=== PATIENT | male | born 1960 | race Caucasian/White ===

== ENCOUNTER → 2018-05-21 | Day surgery (SDC) | payer OTHER ==
[~2018-05-21] MED LIST: BACITRACIN IRRIGATION/NS 50,000 UNITS/1,000 ML BTL IRR ONE; BUPIVACAINE 0.5% 30 ML SDV ONE; DIAZEPAM 5 MG TAB PO ONE; IOPAMIDOL (ISOVUE-300) 50 ML VIAL ONE; LIDO/EPI 1% **for epidural** 30 ML SDV ONE; LIDOCAINE 1% 300 MG/30 ML SDV ONE; MIDAZOLAM 2 MG/2 ML VIAL ONE; NS 1,000 ML IV ONE; ceFAZolin 2 GM/DEXTROSE 100 ML IV ONE; diphenhydrAMINE 25 MG CAP PO ONE; fentaNYL 100 MCG/2 ML INJ ONE
--- NOTE | 2018-05-21 08:12 | PDPROPOC ---
Sedation Plan of Care Sedation Plan of Care: vital signs stable, mental status noted, patient educated of risks, benefits, alternatives, patient can tolerate sedation ASA Classification: ASA 3 Planned drugs: fentanyl, midazolam Mallampati Score: Class 2 Mallampati Reference Image: Patient passed 3-3-2 rule?: Yes
--- NOTE | 2018-05-21 08:13 | PDHPUP ---
History & Physical Update H&P update statement: This history and physical update is based on an assessment of the patient which was completed after admission or registration (within 24 hours), but prior to the surgery/procedure. H&P update: H&P reviewed & patient examined, no change in patient's condition since H&P completed
[2018-05-21 09:40] LABS: PLATELET COUNT 225 10^3/uL (150-400)
[2018-05-21 09:57] LABS: INR 0.97 (0.83-1.16); PROTIME(PATIENT) 13.1 SEC (12.0-15.0)
--- NOTE | 2018-05-21 12:23 | EPPROC ---
Electrophysiology Procedure Note: PROCEDURE: 1. Dual chamber automatic implantable cardioverter-defibrillator replacement. 2. Right atrial lead removal and replacement. DATE OF PROCEDURE: 05/21/2018 EXPLANTED DEVICE: Lumax 540 DR-T Serial# [id number] IMPLANTED DEVICE: Iperia 7 DR-T DF-1 ProMRI [id number] Serial #[id number] CAPPED LEAD: St[place] Ej 1882 TC, Serial# [id number] IMPLANTED LEAD: Biotronik Solia S 53 Model #[id number], Serial #[id number]. LEADS: The atrial lead is Biotronik Solia S 53 Model #[id number], Serial # [id number]. The right ventricular lead is a Biotronik Linox SD 60/16 Serial # [id number]. The Right atrial lead is being replaced for over sensing and unable to properly pace the patient. COMPLICATIONS: None. FOLDER INSPECTOR: Johnie Wu MD INDICATION AND APPROPRIATE USE CRITERIA: The device is being replaced for SARATH alerts. The original device was placed 05/21/2011 for Ventricular fibrillation and tachycardia-induced cardiomyopathy. PROCEDURE IN DETAIL: After informed consent was obtained and n.p.o. status was confirmed, the region of the left subclavicular fossa was cleaned, prepped and draped in a sterile fashion. Approximately 30 mL of 1% lidocaine was utilized for local anesthesia. The skin was sharply incised with a #10 blade. Electrocautery and local pressure were used for hemostasis. Sharp and blunt dissection was used to access the pacemaker pocket overlying the pectoralis major fascia. The pocket was thoroughly flushed and checked for bleeding. Hemostasis was established and the old device was removed from the pocket. The atrial and ventricular lead and defibrillator coil set screws were loosened. The chronic right atrial lead was capped and sutured with O silk. An 18-gauge Cook needle was used to gain access to the left subclavian vein. A straight 0.038 [place] wire was advanced into the IVC and exchanged for a J wire in the inferior vena cava. A 7-F peel-away sheath was advanced over the J wire. The J wire and dilator were removed as well as the peel away sheath. The Atrial lead was manipulated with care into the RA appendage under direct fluoroscopic guidance and screwed into place in the right atrial appendage. The lead was sutured into place with O Ethibond. The atrial lead serial number was checked and placed in the upper pole lead housing of the new pulse generator/AICD and set screw firmly applied. The procedure was repeated for the RV lead and defibrillator coils with the appropriate set screws. Ventricular lead threshold was tested and found to be 1.0 V at 0.4 ms width. R-wave amplitude was measured at 13.7 mV. Lead impedance was 479 Ohms. The new Atrial lead threshold was tested at 0.6 V at 0.4 ms width. P-wave amplitude was 4.3 mV, lead impedance was 653 Ohms. Defibrillator shock coil impedance is 65 Ohms. The device was placed in the pocket and sutured in place with #0 Ethibond. The skin was closed with a 3-layered 3-0 Vicryl, 2-0 Vicryl and 4-0 Monocryl repair with excellent wound edge opposition and hemostasis documented. The V fib zone is set at 200 BPM with ATP x 1 only if the rhythm meets stability criteria (12 cycles) otherwise the device will deliver a 40 Joule shocks x 8 cycles. The device was set with a VT1 monitoring zone of greater than 162BPM. The VT2 zone of 182BPM with ATP x 3 bursts followed by 40 Joules x 8. The patient returned to the post cath recovery unit in good and stable condition where a stat postoperative chest x-ray and EKG were obtained. There was no evidence of pneumothorax and the wires appeared to be in stable position. FINAL IMPRESSION: Successful elective dual chamber automatic implantable cardioverter-defibrillator/pulse generator replacement and new atrial lead placement ( for indication of chronic noise on the atrial lead) without immediate complication. Patient Problems: Problems Problem Status Onset Atrial fibrillation and flutter Active
--- NOTE | 2018-05-21 13:07 | CPEKG ---
Test Reason : OPEN Blood Pressure : / mmHG Vent. Rate : 083 BPM Atrial Rate : 080 BPM P-R Int : 219 ms QRS Dur : 162 ms QT Int : 438 ms P-R-T Axes : 096 028 015 degrees QTc Int : 515 ms Atrial-paced rhythm Right bundle branch block Confirmed by Wilfrido Ramirez ([id number]) on 05/21/2018 1:07:14 PM Referred By: Confirmed By:Wilfrido Ramirez
--- NOTE | 2018-05-21 13:07 | CPEKG ---
Test Reason : OPEN Blood Pressure : / mmHG Vent. Rate : 079 BPM Atrial Rate : 080 BPM P-R Int : 190 ms QRS Dur : 156 ms QT Int : 422 ms P-R-T Axes : 052 030 024 degrees QTc Int : 484 ms Atrial-paced rhythm Right bundle branch block Confirmed by Wilfrido Ramirez ([id number]) on 05/21/2018 1:07:06 PM Referred By: Confirmed By:Wilfrido Ramirez
== END | disposition home or self-care (01) ==
LOC: FCATH 09:02
PROVIDERS: ATTEND Internal Medicine Cardiovascular Disease
PROC: 0JH608Z Insertion of Defibrillator Generator into Chest Subcutaneous Tissue and Fascia, Open Approach (ICD-10-PCS; principal; 2018-05-21)
PROC: 02H63KZ Insertion of Defibrillator Lead into Right Atrium, Percutaneous Approach (ICD-10-PCS; 2018-05-21)
PROC: 0JPT0PZ Removal of Cardiac Rhythm Related Device from Trunk Subcutaneous Tissue and Fascia, Open Approach (ICD-10-PCS; 2018-05-21)
PROC: 02PA3MZ Removal of Cardiac Lead from Heart, Percutaneous Approach (ICD-10-PCS; 2018-05-21)
DX: Z45.02 Encounter for adjustment and management of automatic implantable cardiac defibrillator (principal); T82.190A Other mechanical complication of cardiac electrode, initial encounter; Y83.1 Surgical operation with implant of artificial internal device as the cause of abnormal reaction of the patient, or of later complication, without mention of misadventure at the time of the procedure; I49.01 Ventricular fibrillation; I42.8 Other cardiomyopathies; I48.91 Unspecified atrial fibrillation; I45.10 Unspecified right bundle-branch block; G47.33 Obstructive sleep apnea (adult) (pediatric); Z79.01 Long term (current) use of anticoagulants; Z79.82 Long term (current) use of aspirin; Z86.73 Personal history of transient ischemic attack (TIA), and cerebral infarction without residual deficits; Z87.891 Personal history of nicotine dependence
CPT/HCPCS: 33241; 33244; 33249; 71045; 93005; C1769; C1721; C1898; J0690; J2250; J3010; Q9967

== ENCOUNTER → 2018-06-23 | Outpatient (CLI) | payer OTHER ==
--- NOTE | 2018-06-23 17:16 | ECHO ---
[email or web address] [address] Main: [phone] Fax: Transthoracic Echocardiogram Name: REINALDO OSHEA MR#: [id number] Study Date: 06/23/2018 Study Time: 02:17 PM Date of : 1960 Age: 57 year(s) Height: 185.4 cm (73 in.) Weight: 108.86 kg (240 lb.) BSA: 2.33 m2 Gender: Male Examination: Echo Indication: low EF CHF Image Quality: Adequate Contrast: Requested by: Johnie Wu BP: / Heart Rate: Rhythm: Indication: low EF CHF Procedure Staff Clock Mechanic: Rosemary Nicholson [facility] Reading Physician: Colt Sylvester MD Requesting Provider: Conclusions: Normal size left ventricle. Borderline concentric LV hypertrophy. The ejection fraction is estimated to be 40-45 %. The left atrium is mildly dilated. The right atrium is mildly dilated. The mitral valve is normal in appearance and function. Mild mitral valve regurgitation is present. The aortic valve is tri-leaflet. There is no significant aortic valve regurgitation. No aortic valve stenosis is present. Right ventricular systolic pressure measures 18mmHg. No old studies for comparison. Measurements: Chambers Valvular Assessment AV/MV Valvular Assessment TV/PV Normal Normal Normal Name Value Range Name Value Range Name Value Range Ao Tarah (2D): 3.0 cm (1.4 cm-2.6 AV Vmax: 0.87 m/s (1 m/s-1.7 TR Vmax: 1.78 mm/s ( - ) cm) m/s) TR PGmax: 13 mmHg ( - ) IVSd (2D): 1.1 cm (0.6 cm-1.1 AV maxP mmHg ( - ) syst. PAP: 18 mmHg ( - ) cm) AV meanP mmHg ( - ) PV Vmax: 1.00 m/s (0.6 m/s-0.9 LVDd (2D): 5.1 cm (4.2 cm-5.9 MELE (VTI): 3.5 cm ( - ) m/s) cm) MV E Vmax: 0.40 m/s ( - ) PV PGmax: 4 mmHg ( - ) LVDs (2D): 3.5 cm (2.1 cm-4 MV A Vmax: 0.42 m/s ( - ) cm) MV E/A: 0.95 ( - ) LVPWd (2D): 1.2 cm (0.6 cm-1 cm) MV PHT: 0.061 s ( - ) LVOTd 2.3 cm 2.3 cm mm MVA (PHT): 3.6 s ( - ) LVEF (BP): 44 % (>=55 %) EF Range: 40-45 % Patient: REINALDO OSHEA Study Date: 06/23/2018 Page 1 of 2 02:17 PM RVDd(2D): 3.5 cm (1.9 cm-3.8 cmmm) Continued Measurements: Chambers Valvular Assessment AV/MV Valvular Assessment TV/PV Name Value Name Value Name Value LADs: 3.7 cm MV DecTime: 194 m/s CVP (est.): 5 mmHg LADs Lon.8 cm MV E' Septal: 0.08 m/s LA Area: 27.4 cm2 MV E/E' Septal: 5.10 LA Volume: 87 ml MV E/E' Lateral: 5.50 LA Volume Index: 37.3 ml/m2 RA Area: 21.1 cm2 Additional Vessels Name Value Ao Ascendin.9 cm Inferior Vena Cava: 1.2 cm Findings: Left Ventricle: Normal size left ventricle. Borderline concentric LV hypertrophy. The ejection fraction is estimated to be 40-45 %. No regional wall motion abnormality. Unable to assess diastolic dysfunction. Reduced LV function. Right Ventricle: Normal size right ventricle. Normal RV function. There is a pacemaker lead noted in the right ventricle. Left Atrium: The left atrium is mildly dilated. Right Atrium: The right atrium is mildly dilated. Mitral Valve: The mitral valve is normal in appearance and function. Mild mitral valve regurgitation is present. No mitral stenosis is present. Aortic Valve: The aortic valve is tri-leaflet. There is no significant aortic valve regurgitation. No aortic valve stenosis is present. Tricuspid Valve: The tricuspid valve is normal in appearance and function. Mild tricuspid regurgitation is present. The pulmonary artery pressure is normal. Right ventricular systolic pressure measures 18mmHg. Pulmonic Valve: The pulmonic valve is normal in appearance and function. Mild pulmonic valve regurgitation is noted. Aorta: The aorta is normal. Normal size aortic root measuring 3.0 cm. Normal size ascending aorta measuring 2.9 cm. IVC: The IVC is normal sized. Pericardium: No pericardial effusion. No pleural effusion. (No Signature Object) Patient: REINALDO OSHEA Study Date: 06/23/2018 Page 2 of 2 02:17 PM [id number]
== END ==
LOC: FCP 14:04
PROVIDERS: ATTEND Internal Medicine Cardiovascular Disease
DX: I34.0 Nonrheumatic mitral (valve) insufficiency (principal)

== ENCOUNTER 2018-07-13 10:02 | Inpatient (IN) | payer OTHER ==
--- NOTE | 2018-07-13 10:36 | EDPHY ---
H & P Stated Complaint: suicide attempt around xmas/ yesterday ran away from home/ here for eval Time Seen by Provider: 07/13/18 10:36 HPI/ROS: HPI: This is a 57-year-old male who presents with Chief Complaint: suicide attempt around xmas/ yesterday ran away from home/here for eval Location: psych Quality: Depression, suicide attempt Duration: Several weeks Signs and Symptoms: no auditory hallucinations, no visual hallucinations, + suicidal ideation with a plan, no homicidal ideation, no paranoia Timing: Acute on chronic Severity: Severe Context: Patient has a cardiac history presents for psychiatric reasons accompanied by significant other with worsening severe depression and holding a knife to his throat around [place] trying to attempt suicide and then wondering yesterday from his home approximately 12 hr to"clear his head." Patient reports that he has tried to commit suicide in the past and feels that "he does not want to live anymore and will do it again." Smokes marijuana daily. Takes low-dose Prozac daily. Modifying Factors: See above Comment: ROS: A comprehensive 10 system review of systems is otherwise negative aside from elements mentioned in the history of present illness. MEDICAL/SURGICAL/SOCIAL HISTORY: Medical history: VA, CVA, AICD, A-fib ablation, A-fib Surgical history: Pacemaker Social history: Smokes marijuana daily. 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 Former smoker. Family history noncontributory. CONSTITUTIONAL: Middle-aged white male, flat affect, tidy, cooperative, awake and alert, no obvious distress HEENT: Atraumatic and normocephalic, PERRL, EOMI. Nares patent; no rhinorrhea; no nasal mucosal edema. Tympanic membranes clear. Oropharynx clear, no exudate and moist pink mucosa. Airway patent. No lymphadenopathy. No meningismus. Cardiovascular: Normal S1/S2, regular rate, regular rhythm, without murmur rub or gallop. PULMONARY/CHEST: Symmetrical and nontender. Clear to auscultation bilaterally. Good air movement. No accessory muscle usage. ABDOMEN: Soft, nondistended, nontender, no rebound, no guarding, no peritoneal signs, no masses or organomegaly. No CVAT. EXTREMITIES: 2/2 pulses, strength 5/5, no deformities, no clubbing, no cyanosis or edema. NEUROLOGICAL: no focal neuro deficits. GCS 15. SKIN: Warm and dry, no erythema. no rash. Good capillary refill. PSYCH: Poor eye contact, no flight of ideas, relatively organized thought process, poor insight and judgment, no auditory hallucinations, no visual hallucinations, + suicidal ideation with a plan, no homicidal ideation, no paranoia Source: Patient, Old records Exam Limitations: Clinical condition - Personal History Current Tetanus Diphtheria and Acellular Pertussis (TDAP): Yes Tetanus Vaccine Date: unsure - Medical/Surgical History Hx Asthma: No Hx Chronic Respiratory Disease: No Hx Diabetes: No Hx Cardiac Disease: Yes Hx Renal Disease: No Hx Cirrhosis: No Hx Alcoholism: Yes Hx HIV/AIDS: No Hx Splenectomy or Spleen Trauma: No Other PMH: VA, CVA, AICD, A-fib ablation, A-fib - Social History Smoking Status: Former smoker Constitutional: Initial Vital Signs Temperature (C) 37.1 C 07/13/18 10:06 Heart Rate 81 07/13/18 10:06 Respiratory Rate 16 07/13/18 10:06 Blood Pressure 125/81 H 07/13/18 10:06 O2 Sat (%) 95 07/13/18 10:06 O2 Delivery Mode Room Air Allergies/Adverse Reactions: hydrocodone bitartrate [From Vicodin] Allergy (Unknown, Verified 07/13/18 10:04) vancomycin Allergy (Verified 07/13/18 10:04) MOHAMUD AGONIST Allergy (Unknown, Uncoded 01/30/11 14:30) Home Medications: Medication Instructions Recorded Cholecalciferol (Vitamin D3) 2,000 unit PO DAILY 02/18/12 [Vitamin D-3] Dabigatran Etexilate Mesyl 150 mg PO BID 02/18/12 [Pradaxa 150 MG (*)] Multivitamins [Multivitamin (*)] 1 tab PO DAILY 02/18/12 traZODone [traZODONE 50MG (*)] 50 mg PO HS 02/18/12 Gabapentin [Neurontin 400 MG (*)] 800 mg PO HS 09/07/12 Atorvastatin Calcium [Lipitor 20 20 mg PO HS 03/13/15 mg (*)] Gabapentin [Neurontin 400 MG (*)] 1,200 mg PO DAILY@12 03/13/15 Herbals/Supplements -Info Only 1 ea PO DAILY 03/13/15 LORazepam [Ativan (*)] 0.5 - 1 mg PO HS PRN 03/13/15 buPROPion XL [Wellbutrin 150mg XL] 225 mg PO DAILY 03/13/15 traZODone [traZODONE 50MG (*)] 100 mg PO DAILY@19 03/13/15 Metoprolol Tartrate [Lopressor 100 100 mg PO BID #60 tab 03/14/15 mg (*)] FLUoxetine 20 mg PO DAILY AT 9PM 05/21/18 Medical Decision Making ED Course/Re-evaluation: Vital signs reviewed and stable upon arrival. Placed on M1 hold due to suicide attempted behaviors with worsening severe depression. Labs and UDS ordered 1145: Labs reviewed and grossly unremarkable. Urine drug screen negative. Medically clear for mental health evaluation. 1245: Notified by RN that [facility] has evaluated the patient. P.o. Ativan 1 mg given as patient is slightly anxious and has not had marijuana in 2 days. 1418: Notified by [facility] that patient has been recommended for inpatient psychiatric admission at [address] [place] [address] Presley. EMTALA form completed. This patient was seen under the supervision of my secondary supervising physician. I evaluated care for this patient independently. Discussed this patient with Dr. Grady who did not see the patient. Differential Diagnosis: Differential diagnosis includes but is not limited to major depression, anxiety disorder, schizophrenia, bipolar disorder, intoxicant use, suicidal ideation, psychosis, shagufta. - Data Points Laboratory Results: Laboratory Results 07/13/18 11:00 07/13/18 11:00 07/13/18 07/13/18 07/13/18 11:00 11:00 11:00 WBC 10.59 10^3/uL H 10^3/uL (3.80-9.50) RBC 5.04 10^6/uL 10^6/uL (4.40-6.38) Hgb 15.9 g/dL g/dL (13.7-17.5) Hct 47.1 % % (40.0-51.0) MCV 93.5 fL fL (81.5-99.8) MCH 31.5 pg pg (27.9-34.1) MCHC 33.8 g/dL g/dL (32.4-36.7) RDW 13.5 % % (11.5-15.2) Plt Count 226 10^3/uL 10^3/uL (150-400) MPV 9.3 fL fL (8.7-11.7) Neut % (Auto) 70.3 % % (39.3-74.2) Lymph % (Auto) 20.2 % % (15.0-45.0) [place] % (Auto) 8.5 % % (4.5-13.0) Eos % (Auto) 0.4 % L % (0.6-7.6) Baso % (Auto) 0.3 % % (0.3-1.7) Nucleat RBC Rel Count 0.0 % % (0.0-0.2) Absolute Neuts (auto) 7.45 10^3/uL H 10^3/uL (1.70-6.50) Absolute Lymphs (auto) 2.14 10^3/uL 10^3/uL (1.00-3.00) Absolute Monos (auto) 0.90 10^3/uL H 10^3/uL (0.30-0.80) Absolute Eos (auto) 0.04 10^3/uL 10^3/uL (0.03-0.40) Absolute Basos (auto) 0.03 10^3/uL 10^3/uL (0.02-0.10) Absolute Nucleated RBC 0.00 10^3/uL 10^3/uL (0-0.01) Immature Gran % 0.3 % % (0.0-1.1) Immature Gran # 0.03 10^3/uL 10^3/uL (0.00-0.10) Sodium 137 mEq/L mEq/L (135-145) Potassium 4.8 mEq/L mEq/L (3.5-5.2) Chloride 106 mEq/L mEq/L (97-110) Carbon Dioxide 22 mEq/l mEq/l (22-31) Anion Gap 9 mEq/L mEq/L (6-14) BUN 27 mg/dL H mg/dL (7-23) Creatinine 1.0 mg/dL mg/dL (0.7-1.3) Estimated GFR > 60 Glucose 92 mg/dL mg/dL (70-100) Calcium 9.7 mg/dL mg/dL (8.5-10.4) Urine Opiates Screen NEGATIVE (NEGATIVE) Urine Barbiturates NEGATIVE (NEGATIVE) Ur Phencyclidine Scrn NEGATIVE (NEGATIVE) Ur Amphetamine Screen NEGATIVE (NEGATIVE) U Benzodiazepines Scrn NEGATIVE (NEGATIVE) Urine Cocaine Screen NEGATIVE (NEGATIVE) U Marijuana (THC) Screen NEGATIVE (NEGATIVE) Ethyl Alcohol < 10 mg/dL mg/dL (0-10) Medications Given: Discontinued Medications Lorazepam (Ativan) 1 mg PO EDNOW ONE Stop: 07/13/18 12:45 Last Admin: 07/13/18 13:29 Dose: 1 mg Departure - Departure Disposition: [facility] IP Clinical Impression: Severe major depression without psychotic features, Suicidal behavior with attempted self-injury Condition: Fair
[2018-07-13 11:10] LABS: PLATELET COUNT 226 10^3/uL (150-400)
[2018-07-13] MEDS ORDERED: LORazepam 1 MG TAB PO ONE (12:44)
[2018-07-13] MEDS ORDERED: LORazepam 1 MG TAB ONE (13:26)
--- NOTE | 2018-07-13 15:26 | GCON ---
DATE OF CONSULTATION: 07/13/2018 REFERRING PHYSICIAN: Yousif Presley MD REASON FOR CONSULTATION: Medical management of chronic issues. HISTORY OF PRESENT ILLNESS: A 57-year-old male with CAD, history of CVA, pacemaker and AICD, presenting with suicidal ideations. Has had increased depression recently and attempted suicide around [place] by holding a knife to his throat. He wandered away from his home yesterday for a couple hours to clear his head. Has had prior suicide attempt. "He does not want to live anymore and will do it again." Prescribed Prozac, but sometimes forgets to take it. Denies homicidal ideations. No auditory or visual hallucinations. No chest pain, shortness of breath, lower extremity edema. REVIEW OF SYSTEMS: I completed a 10-point review of systems, negative except as noted in HPI. PAST MEDICAL HISTORY: History of CAD, prior NC, no stents. Mild cardiomyopathy with an EF 40-45 percent, June 2018, history of CVA with no residual deficits. AICD last replaced May 2018. Atrial fibrillation status post ablation. PAST SURGICAL HISTORY: Pacemaker and AICD. FAMILY HISTORY: Noncontributory. SOCIAL HISTORY: He was smoking marijuana daily, quit 4 days ago. He has been sober from alcohol for 15 years. No other illicits or tobacco. ALLERGIES: Hydrocodone, vancomycin, Ambien. HOME MEDICATIONS: Trazodone 100 mg daily, 500 at bedtime, Wellbutrin 225 mg daily, multivitamin, metoprolol 100 mg twice daily, Ativan 0.5 to 1 mg at bedtime p.r.n., herbal supplement, gabapentin 12,000 daily, 800 at night, fluoxetine 20 daily, Pradaxa, vitamin D3, Lipitor 20. PHYSICAL EXAMINATION: VITAL SIGNS: Temperature 36.9, blood pressure 130/74, heart rate in the 80s, respirations 18, 95% on room air. GENERAL: Well- appearing, mildly anxious, sitting up in bed, no acute distress. HEENT: PERRLA. Moist mucous membranes. Poor senior living. CV is regular rate and rhythm. Pacemaker in place. No lower extremity edema. LUNGS: Clear. No crackles or wheezing. ABDOMEN: Soft, nontender, nondistended. Positive bowel sounds. no Smith. MUSCULOSKELETAL: 5/5 upper and lower extremity strength. NEURO: Cranial nerves 2 through 12 intact. PSYCH: Alert and oriented x3. Answering questions appropriately. Flat affect. LABS: WBC 10, hemoglobin 15, hematocrit 47, platelets 226. Sodium 137, potassium 4.8, chloride 106, carbon dioxide 22, BUN 27, creatinine 1, glucose 92 , calcium 9.7. Urine tox negative. Negative BAL. ASSESSMENT AND PLAN: 1. Suicidal ideation: progressive depression with a suicide plan in place. Warrants evaluation by Psychiatry team at [facility]. 2. Coronary disease: no anginal symptoms. Metoprolol, statin. 3. Atrial fibrillation: rate-controlled. Continue beta john and Pradaxa. 4. Depression. Defer to Psychiatry team. Thank you for this consultation. Please call if any questions. /[id number]/MODL MTDD
--- NOTE | 2018-07-13 16:02 | ASMTTLCEVL ---
TLC Evaluation - Basic Information Evaluation Start Date and 07/13/2018 12:00 PM Time Hospital Status Answers: M1 Hold 72-hr M1 Hold Start Date 07/13/2018 10:45 AM and Time Patient statement Notes: "I tried to commit suicide 2 weeks ago." Narrative Notes: Pt is a 59 year old male who presented to [facility] with his voluntarily complaining of increased depression and SI. Pt stated he held a knife to his throat on [place] when he was alone. Pt stated he was feeling, "all this pressure in his head." he reports during Bhavani he was thinking about " how his father did not want him born." Pt reports he feels sad and upset about his childhood. Pt's stated pt reported, " I can remember being in the womb and feeling my dad's anger." He reports he has been depressed all of his life since the age of 6. but reports his depression has gotten much worse over the past few months. Pts reports over the past 2 months his depression has escalated. yesterday pt left in the morning without saying anything. They live in [place]. Pt left his wallet and cell phone and walked from [place] to [place]. Pt left without his coat. Pt told his he left, "to clear his head." While he was walking he reported, " God has been talking to me." Umu stated he was rambling and this behavior is out of character. She reports that pt has angry a outburst, especially when he is not smoking marijuanna. Pt has been smoking marijuana for approx 38 years and recently has been smoking every 2 hours. Umu states, " smoking marijuana is the only thing that helps the demons in his head." Pt stopped using marijuana 4 days ago and initially Umu stated he was doing very well but now there was a sudden change in his behavior and has become depressed and exhibiting erratic behaviors. When pt was asked if he is currently having SI, he responded, " a little." Pt did not elaborate. Pt stated, " I'm having difficulty concentrating. My mind is just racing." Diagnosis History Notes: Pt reports while he was being treated for alcoholism a psychiatrist dx him with bipolar disorder. Prior suicide attempts Notes: Pt reports while he was being treated for alcoholism a psychiatrist dx him with bipolar disorder. Prior hospitalizations Notes: Pt stated he attended rehab at [facility]. Treatment Responses Notes: P stated his rehab experience was helpful. History of violence Notes: Pt denied wanting to harm others. Per Umu, pt told her he is afraid he may hurt someone here at [facility] when he goes through withdrawal of THC. Pt also reported he thinks these thoughts, "May be delusions." Therapist: Pt sees a substance abuse counselor. Psychiatrist: Pt has an appt [facility] with a psychiatrist at the end of September Medications (name, dosage, route, freq uency) Notes: trazadone 100mg; prozac; Gabapentin 1200mg Allergies/Reaction Notes: Ambien- erratic behavior Sleep Notes: Pt stated " I take 3 pills a day." Appetite Notes: wnl Medical/Surgical history Notes: Pt had a stroke 9 years ago and went into cardiac arrest. Pt has a pace maker and uses a hearing aid. Substance use history (frequency, intensity, his tory, duration) Notes: - Pt has been sober from alcohol for 15 years. Pt uses marijuana every day but recently stopped for 4 days. Pt had been using marijuana for 38 years and recently has been smoking every 2 hours. Utox was negative and bal was .0 Family composition Notes: Pt has 7 siblings and states they are not really close. Pt's father lives in [place] and he reports they get along well. Need for family Answers: No participation in patient's care Family psychiatric/substance abuse history Notes: Pt denied any family psychiatric history. Developmental history Notes: Pt reports having a difficult childhood. Pt is the oldest of 8 children. Pt stets he remembers his father not wanting him bor. Pt stated his father was busy working and did not spend much time with him when he was growing up. Pt stated he felt neglected in his family. Abuse concerns Answers: Past Marital status/children Notes: Pt has been for 38 years and has 2 adult children. His son is 35 and his daughter is 33. Pt reports he does not have a close relationship with his children. Living situation Notes: Pt lives in [place] with his . Sexual history/orientation Notes: Heterosexual Peer support/family strengths Notes: Pt stated he has a couple of good friends. Education level/history Notes: Pt graduated high school. 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 Notes: None Legal Notes: Pt denied any legal problems. Roman Catholic/Spiritual Notes: Pt stated he is Taoism. Leisure Notes: Pt enjoys golfing. Collateral Notes: -Umu Patient's strengths Answers: Athletic (Please select at least TWO strengths): Intelligent Motivated for Treatment Supportive Family Willingness [facility] Evaluation - Mental Status Exam Appearance: Answers: Appropriate Eye Contact: Answers: Avoiding Affect: Answers: Anxious Confused Behavior: Answers: Cooperative Speech: Answers: Relevant Logical Clear Unclear Thought Process: Answers: Organized Oriented Disoriented Distracted Insight: Answers: Good Judgement: Answers: Fair Manic Signs/Symptoms Answers: Distractibility Irritability Mood Swings Racing Thoughts Depression Answers: Hopelessness Signs/Symptoms: Sad Mood Hallucinations: Answers: Auditory Current Stage of Change Answers: Precontemplation Pt reported to have Answers: No suicidal/self-injuring ideation/behavior? Pt reported to be making Answers: Yes suicidal/self-injuring threats? Pt reported to be making Answers: No aggression/assault threats? Ideation/behavior is Answers: Yes chronic? Patient has a specific Answers: No plan? Ideation has Answers: No delusional/hallucinatory content? History of Answers: No suicidal/self-injuring ideation, behavior, or threats? History of Answers: No aggressive/assaultive ideation, behavior, or threats? History of serious Answers: No physical harm to self/others while in treatment setting? [facility] Evaluation - Suicide/Homicide Risk Suicide Risk Factors: Answers: < 20 or > 40 Years of Age Alcohol/Heavy Drug Use Hopelessness Impulsivity Rapid Mood Shifts Homicide/violence risk Answers: None factors: Current Suicidal Answers: Yes Ideation? Current Suicidal Ideation Answers: Yes in the Past 48 Hours? Current Suicidal Ideation Answers: No in the Past Month? Suicide Internal Answers: Absence of Psychosis Protective Factors: Suicide External Answers: Positive Therapeutic Protective Factors: Relationships Social Support Ranking of patient's Answers: Severe suicidal risk: Ranking of patient's Answers: Low homicidal risk: TLC Evaluation - Wrap-up BDI Total Score: Unable BSS Total Score: Unable AXIS I Diagnosis (include DSM-V and ICD-10 codes), must also be entered in [employer], which is the source of truth. Notes: Cannabis Use Disorder, severe 304.30 (F12.20) Major Depressive Disorder, recurrent, severe 296.33 (F33.2) In consultation with [facility] ED physician, Ha Grady MD and on-call psychiatrist, Dr. Fernandez MD, both concurred that pt appears to meet 27-65 criteria requiring psychiatric hospitalization as pt appears to be at risk of harm to self due to a mental illness condition. Pt was given the 3N prohibited belongings list while in the ED. Evaluation End Date and 07/13/2018 04:00 PM Time (HH:MM): Date Signed: 07/13/2018 04:02 PM Electronically Signed By:Jacqui Santa
--- NOTE | 2018-07-13 16:03 | ASMTTCLDSP ---
TLC Discharge Disposition Disposition: Answers: Admit Discharge Concerns/Recommendations: Notes: In consultation with [facility] ED physician, Ha Grady MD and on-call psychiatrist, Dr. Fernandez MD, both concurred that pt appears to meet 27-65 criteria requiring psychiatric hospitalization as pt appears to be at risk of harm to self due to a mental illness condition. Pt was given the 3N prohibited belongings list while in the ED. For inpatient Yousif Presley MD admission, the following psychiatrist agreed to accept patient [facility] Date Signed: 07/13/2018 04:03 PM Electronically Signed By:Jacqui Santa
[2018-07-13] MEDS ORDERED: LORazepam 0.5 MG TAB PO PRN (16:43)
[2018-07-13] MEDS ORDERED: MAG HYDROX/AL HYDROX/SIMETH 30 ML UDCUP PO PRN (16:43)
[2018-07-13] MEDS ORDERED: NICOTINE POLACRILEX 2 MG GUM B PRN (16:43)
[2018-07-13] MEDS ORDERED: MAGNESIUM HYDROXIDE 30 ML UDCUP PO PRN (16:43)
[2018-07-13] MEDS: DABIGATRAN ETEXILATE MESYL 150 MG CAP PO SCH (20:11)
[2018-07-13] MEDS: METOPROLOL TARTRATE 50 MG TAB PO SCH (20:11)
--- NOTE | 2018-07-14 07:30 | ASMTBHMTP ---
Master Treatment Plan Master Treatment Plan Answers: Depressed Mood with for: Suicidal Ideation Date: 07/13/2018 Diagnosis on Admission: Major Depressive Disorder, Recurrent, Severe 296.33 (F33.2) Expected length of stay: 3-5 days Reason for admission: Notes: Per Report: Pt is a 59 year old male who presented to [facility] with his voluntarily complaining of increased depression and SI. Pt stated he held a knife to his throat on [address] when he was alone. Pt stated he was feeling, "all this pressure in his head." he reports during Bhavani he was thinking about " how his father did not want him born." Pt reports he feels sad and upset about his childhood. Pt's stated pt reported, " I can remember being in the womb and feeling my dad's anger." He reports he has been depressed all of his life since the age of 6. but reports his depression has gotten much worse over the past few months. Pts reports over the past 2 months his depression has escalated. yesterday pt left in the morning without saying anything. They live in [place]. Pt left his wallet and cell phone and walked from [place] to [place]. Pt left without his coat. Pt told his he left, "to clear his head." While he was walking he reported, " God has been talking to me." Umu stated he was rambling and this behavior is out of character. She reports that pt has angry a outburst, especially when he is not smoking marijuanna. Pt has been smoking marijuana for approx 38 years and recently has been smoking every 2 hours. Umu states, " smoking marijuana is the only thing that helps the demons in his head." Pt stopped using marijuana 4 days ago and initially Umu stated he was doing very well but now there was a sudden change in his behavior and has become depressed and exhibiting erratic behaviors. When pt was asked if he is currently having SI, he responded, " a little." Pt did not elaborate. Pt stated, " I'm having difficulty concentrating. My mind is just racing." Patient's stated presenting problems: Notes: "I have not been feeling well." Patient's goals for treatment: Notes: "to feel better, to do something vital." Patient's strengths: Notes: Not really Identify supports outside of hospital: Notes: family and friends Discharge criteria: Notes: Return Home after discharge.* Master Treatment Plan Required Signatures Psychiatrist signature: Answers: Psychiatrist: RN on-shift signature: Answers: RN: Patient signature: Answers: Patient: Date Signed: 07/14/2018 07:29 AM Electronically Signed By:Kavin Medina
[2018-07-14] MEDS: METOPROLOL TARTRATE 50 MG TAB PO SCH ×2 (09:07→19:45)
[2018-07-14] MEDS: MULTIVITAMINS 1 EACH TAB PO SCH (09:07)
[2018-07-14] MEDS: DABIGATRAN ETEXILATE MESYL 150 MG CAP PO SCH ×2 (09:07→19:45)
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
--- NOTE | 2018-07-14 12:16 | PDMN ---
Medical Necessity Medical necessity: Pt meets inpt criteria per MD order and [facility], Anxiety Disorders (excluding Posttraumatic Stress Disorder), Adult: Inpatient Care, 2 days. 57 y/o admitted w/ gen anxiety disorder, cannabis induced anxiety disorder w/onset during WD, and cannabis use disorder, severe, on M1 hold due to risk of harm to self/recent suicidal ideation requiring inpt psych hospitalization.
[2018-07-15] MEDS: LORazepam 0.5 MG TAB PO PRN ×2 (02:54→09:05)
[2018-07-15] MEDS: OLANZapine DISINTEGR 5 MG TAB PO PRN (02:54)
--- NOTE | 2018-07-15 08:01 | SOAPPROG ---
SOAP Progress Note Assessment/Plan: Assessment: Generalized Anxiety Disorder, Cannabis-induced anxiety disorder in withdrawal, Cannabis Use Disorder, Severe. R/O Cannabis-induced mood disorder in withdrawal. Improvement noted (see subjective/objective note). Patient could benefit from continued inpatient hospitalization for crisis stabilization, safety, and medication evaluation. Consider discharge tomorrow. Plan: 1. Psychotropic medications: After reviewing options, risks, and benefits patient agrees to continue current medications and agrees to trial Zyprexa Zydis 5 mg po QD and 5 mg po QHS. No medication changes at this time as more time is needed to determine ongoing tolerability and efficacy. Plan is to continue to observe patient for response and side effects from medications, and ongoing monitoring and evaluation. 2. Review with patient informed consent and recommendations for psychotropic medication treatment listed below 3. Labs: no additional labs at this time 4. Therapy: continue milieu and group therapy 5. Further investigation including gathering information from patients relatives and review of past case records to inform treatment plan. 6. Safety/Wellness plan and follow-up outpatient appointments to be established prior to discharge. Next steps are for patient to meet with manager intensive care to plan a safe discharge plan and establish outpatient services for ongoing treatment. 7. Confer with inpatient treatment team regarding treatment plan. 8. Psychosocial stressors addressed through briefcase sewer. 9. Legal status: M1 10. Consider discharge on Thursday if patient is in stable condition, safe, and has a safe discharge plan. 11. Substance abuse interventions: cannabis 12. Refer patient to outpatient substance abuse treatment PSYCHOTROPIC MEDICATION TREATMENT INFORMED CONSENT and RECOMMENDATIONS: Review nature of condition, diagnosis, and prognosis. Review nature and purpose of psychotropic medication treatment. Review type of psychotropic medications being ordered. Review risk and benefits of psychotropic medication treatment. Review probable length of time patient will need to take medications. Review risk and benefits of not undergoing psychotropic medication treatment. Review alternative treatments to psychotropic medications. Review psychotropic medications contraindications, drug-drug interactions, side effects, and importance of reporting any side effects to a psychiatric provider or nurse during inpatient hospitalization, and upon discharge to patients psychiatric outpatient provider, primary care provider, or other health long term care pharmacist. Review importance of asking a nurse, psychiatric provider, or primary care provider any questions or problems concerning the psychotropic medications. Verify patient understands the information that has been provided, and understands, accepts, and agrees to psychotropic medications. Review patients safety plan and importance of patient to report to staff while hospitalized if patient is ever a danger to self/others, or unable to care for self, and upon discharge, the importance for patient to contact [facility] or [facility], or go to the nearest emergency room, if patient is ever a danger to self/others, or unable to care for self. Recommend that upon discharge patient establish medication management treatment with a psychiatric provider, establishes routine therapy appointments, and follow-up with primary care provider. Verify patient understands and agrees to these recommendations. 07/15/18 08:00 Subjective: Following up with patient for evaluation of depression, anxiety, and safety. Patient reports, "Didn't sleep last night, my mind is just racing, racing." Patient expresses the following psychiatric symptoms severe anxiety, racing thoughts. Patient reports taking medications as prescribed, and describes response to medications as poor. Patient does not report undesirable side effects from the medications, and agrees to continue current medications. Patient describes getting 8 hours of sleep. Patient agrees to outpatient substance abuse treatment. Patient agrees to trial of Zyprexa Zydis 5 mg po QD and Zyprexa Zydis 5 mg po QHS. Objective: Vital Signs Temp Pulse Resp BP Pulse Ox 36.8 C 84 10 L 130/66 H 91 L 07/14/18 06:00 07/14/18 09:16 07/14/18 09:16 07/14/18 09:16 07/14/18 09:16 NURSING REPORT: Consulted with nursing for update on patients progress in treatment. Nurses report patient is engaged in treatment, is attending groups, slept 0 hours, expresses the following psychiatric symptoms: severe anxiety, exhibits the following psychiatric symptoms: anxiety, is eating all meals, is agreeable to medications and taking as prescribed with no report of side effects , with no s/s of EPS/akathisia, and denies SI/HI, denies A/V hallucinations, and denies delusions. MSE: The patient is a well-nourished male looking stated chronological age. Attire is appropriate dress is casual. Grooming status is appropriate. Ambulation is independent. Gait is normal and coordinated. Posture is normal and relaxed. Eye contact is appropriate. Motor activity is appropriate with purposeful, organized, coordinated movements; with no involuntary movements. Attitude is cooperative. Patient appears attentive and relates well to this interviewer. Language production is spontaneous. R/R/V normal. Articulation is clear. Patient reports mood as anxious with congruent affect. Patients thought process is linear and logical with no signs of thought disorder. Patient does not report suicidal/homicidal thoughts, ideas, or plans. Patient denies auditory, visual hallucinations. Patient does not report delusions. Patient does not appear to be attending to internal stimuli. Patients attention and concentration are adequate. Patient is oriented to person, place , time. Patients insight is fair. Patients judgment is fair. SUBSTANCE ABUSE BRIEF INTERVENTION: Brief intervention regarding the risks of cannabis abuse is provided to patient with goal to reduce the risk of harm that could result from the continued use of cannabis, with the general aim to investigate the problem, raise awareness of problem, develop a solution with the patient, recommend a specific change or activity, and motivate the patient toward change. Assess substance abuse behavior and give supportive advice about harm reduction, recommend a reduction in hazardous/at-risk consumption patterns, and facilitate referrals for additional specialized treatment with care management associate. Intermediate goal is for the patient to quit and attend outpatient substance abuse treatment. Intervention focus on intermediate goals to allow for more immediate success in the treatment process to keep the patient motivated. Review following with patient: Cannabis use risks: Short- term use: impaired short-term memory, impaired motor coordination, altered judgement, in high doses paranoia and psychosis. Long-term use addiction, diminished life satisfaction and achievement, symptoms of chronic bronchitis, and increased risk of chronic psychosis disorders if predisposition to such disorders. In withdrawal anger, aggression irritability, anxiety and nervousness, decreased appetite or weight loss, restlessness, and sleep difficulties with strange dreams. OUTPATIENT SUBSTANCE ABUSE TREATMENT: Patient referred to outpatient provider and treatment for continued treatment related to substance abuse. - Time Spent With Patient Time Spent With Patient: 15 minutes, met with patient individually. - Pending Discharge Pending Discharge Within 24 Hours: No Pending Discharge Within 48 Hours: No ICD10 Worksheet Patient Problems: Problems Problem Status Onset Cannabis use disorder, severe, dependence Acute Cannabis-induced anxiety disorder with onset during withdrawal Acute Severe major depression without psychotic features Acute Suicidal behavior with attempted self-injury Acute Generalized anxiety disorder Chronic Atrial fibrillation and flutter Active Non-ischemic cardiomyopathy Acute Non-ischemic cardiomyopathy Acute
[2018-07-15] MEDS: MULTIVITAMINS 1 EACH TAB PO SCH (08:51)
[2018-07-15] MEDS: DABIGATRAN ETEXILATE MESYL 150 MG CAP PO SCH ×2 (08:51→20:13)
[2018-07-15] MEDS: METOPROLOL TARTRATE 50 MG TAB PO SCH ×2 (08:51→20:13)
[2018-07-15] MEDS: OLANZapine DISINTEGR 5 MG TAB PO SCH ×2 (09:06→20:13)
[2018-07-15] MEDS: ATORVASTATIN CALCIUM 20 MG TAB PO SCH (20:13)
[2018-07-16] MEDS: METOPROLOL TARTRATE 50 MG TAB PO SCH ×2 (07:17→21:01)
[2018-07-16] MEDS: MULTIVITAMINS 1 EACH TAB PO SCH (07:17)
[2018-07-16] MEDS: OLANZapine DISINTEGR 5 MG TAB PO SCH ×2 (07:18→21:03)
[2018-07-16] MEDS: DABIGATRAN ETEXILATE MESYL 150 MG CAP PO SCH ×2 (07:18→21:02)
[2018-07-16] MEDS: LORazepam 0.5 MG TAB PO PRN ×2 (07:18→23:12)
[2018-07-16] MEDS ORDERED: PNEUMOCOCCAL 0.5ML VACCINE VIAL (PNEUMOVAX 23) IM ONE ×2 (09:08→14:00)
--- NOTE | 2018-07-16 09:26 | BDS ---
REASON FOR ADMISSION: From the ED note dated 07/13/2018, the patient presented to the emergency room with worsening severe depression, reported holding a knife to his throat around [place], trying to attempt suicide. The patient reports that he has tried to commit suicide in the past and reported " he does not want to live anymore and will do it again." The patient has had a long history of THC us e of 15+ years and reportedly using THC every 2 hours, either smoking or using edibles. The patient reported recently stopping THC use, and upon stopping, depression worsened, anxiety worsened, and dennis duran reported racing thoughts. The patient was admitted involuntarily on an M1 hold due to being a d anger to himself. The patient was admitted for safety, crisis stabilization, and medication manageme nt. ADMITTING DIAGNOSES: 1. Generalized anxiety disorder. 2. 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 3. 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 4. Cannabis use disorder, severe. 5. Severe major depression, without psychotic features. 6. Suicidal behavior with attempted self-injury. ADMISSION PHYSICAL EXAM: Patient was seen for a history and physical consultation on 07/13/2018, for medical clearance for inpatient psychiatric hospitalization and treatment. The patient was medicall y cleared for inpatient psychiatric hospitalization and treatment. For further details, please refer to the consultation note dated 07/13/2018. ADMISSION LABS: 1. CBC within normal limits, except white blood cells were elevated at 10.59, eosinophils were low a t 0.4, absolute neutrophils were elevated at 7.45, absolute monocytes were elevated at 0.902. 2. BMP within normal limits, except BUN was elevated at 27. 3. Hemoglobin A1c within normal limits at 5.7. 4. Lipid panel within normal limits. 5. Toxicology screen negative for all substances screened and negative for ethyl alcohol. MAJOR PROCEDURES OR TESTS: None. HOSPITAL COURSE: The most prominent symptoms and behaviors while the patient was here were patient's expressed symptoms of racing thoughts, severe anxiety, and insomnia. Patient was also withdrawn, av oided social interaction with staff and other patients. Treatment modalities utilized were milieu an d group therapy. Trazodone 150 mg p.o. q.h.s. was continued to target insomnia symptoms, was tolerat ed with no report of side effects and with good response. Zyprexa Zydis 5 mg p.o. daily and 5 mg p.o . q.h.s. was started to target mood symptoms, was tolerated with no report of side effects and with g ood response. Patient has improved considerably, with no signs of psychiatric symptoms and no psychi atric symptoms expressed at time of discharge. Patient reports he has improved since admission, stat es to be in stable condition, feels safe to discharge, and he contracts for safety. Patient's respon se to treatment was good. There were no adverse or unexpected results of treatment. The patient was safe throughout his stay, active in treatment, engaged in groups, and was appropriate with staff and other patients. The patient met with the treatment team prior to discharge to assess readiness to d ischarge and review discharge plan. The treatment team consensus is the patient is in stable conditio n, has a safe discharge plan, and is ready to discharge today. CONDITION ON DISCHARGE: DISCHARGE DIAGNOSES: CURRENT MEDICATIONS: After reviewing options, risks and benefits with the patient, the patient agree s to continue: 1. Pradaxa 150 mg p.o. b.i.d. 2. Lipitor 20 mg p.o. q.h.s. 3. Trazodone 150 mg p.o. q.h.s. 4. Gabapentin 1200 mg p.o. daily. 5. Lopressor 100 mg p.o. b.i.d. 6. Gabapentin 800 mg p.o. q.h.s. 7. Vitamin D3 5000 units p.o. daily. 8. Zyprexa 5 mg p.o. q.h.s. The patient reports he has prescriptions for all the medications listed above, except for Zyprexa 5 m g p.o. q.h.s. and requests a prescription for this medication at time of discharge. A prescription f or 30 days is provided. The prescription is reviewed with the patient at time of discharge to ensure accuracy and patient understanding. Medications are reviewed with the patient at time of discharge to ensure accuracy and patient understanding. DISPOSITION: The patient left hospital independently and voluntarily with his and plans to retu rn home with his to [place], [place]. FOLLOWUP: LEGAL COURSE: The patient was admitted on an M1 hold for involuntary inpatient psychiatric [facility]. Patient discharged today independently and voluntarily. ATTITUDE AT TIME OF DISCHARGE: LABS AND STUDIES: There were no pending labs or studies at time of discharge. ADVANCE DIRECTIVES: There were no advance directives on file, and patient was full code during this hospitalization. /[id number]/MODL
--- NOTE | 2018-07-16 11:05 | SOAPPROG ---
SOAP Progress Note Assessment/Plan: Assessment: Generalized Anxiety Disorder, Cannabis-induced anxiety disorder in withdrawal, Cannabis Use Disorder, Severe. R/O Cannabis-induced psychosis/mood disorder. Slight improvement noted (see subjective/objective note). Patient could benefit from continued inpatient hospitalization for crisis stabilization, safety, and medication evaluation. Plan: 1. Psychotropic medications: After reviewing options, risks, and benefits patient agrees to continue current medications. No medication changes at this time as more time is needed to determine ongoing tolerability and efficacy. Plan is to continue to observe patient for response and side effects from medications, and ongoing monitoring and evaluation. 2. Review with patient informed consent and recommendations for psychotropic medication treatment listed below 3. Labs: no additional labs at this time 4. Therapy: continue milieu and group therapy 5. Further investigation including gathering information from patients relatives and review of past case records to inform treatment plan. 6. Safety/Wellness plan and follow-up outpatient appointments to be established prior to discharge. Next steps are for patient to meet with patient care coordinator to plan a safe discharge plan and establish outpatient services for ongoing treatment. 7. Confer with inpatient treatment team regarding treatment plan. 8. Psychosocial stressors addressed through bilingual case manager. 9. Legal status: voluntary 10. Consider discharge on Thursday if patient is in stable condition, safe, and has a safe discharge plan. 11. Substance abuse interventions: cannabis 12. Refer patient to outpatient substance abuse treatment PSYCHOTROPIC MEDICATION TREATMENT INFORMED CONSENT and RECOMMENDATIONS: Review nature of condition, diagnosis, and prognosis. Review nature and purpose of psychotropic medication treatment. Review type of psychotropic medications being ordered. Review risk and benefits of psychotropic medication treatment. Review probable length of time patient will need to take medications. Review risk and benefits of not undergoing psychotropic medication treatment. Review alternative treatments to psychotropic medications. Review psychotropic medications contraindications, drug-drug interactions, side effects, and importance of reporting any side effects to a psychiatric provider or nurse during inpatient hospitalization, and upon discharge to patients psychiatric outpatient provider, primary care provider, or other health day care center director. Review importance of asking a nurse, psychiatric provider, or primary care provider any questions or problems concerning the psychotropic medications. Verify patient understands the information that has been provided, and understands, accepts, and agrees to psychotropic medications. Review patients safety plan and importance of patient to report to staff while hospitalized if patient is ever a danger to self/others, or unable to care for self, and upon discharge, the importance for patient to contact [facility] or [facility], or go to the nearest emergency room, if patient is ever a danger to self/others, or unable to care for self. Recommend that upon discharge patient establish medication management treatment with a psychiatric provider, establishes routine therapy appointments, and follow-up with primary care provider. Verify patient understands and agrees to these recommendations. 07/16/18 11:04 Subjective: Following up with patient for evaluation of depression, anxiety, and safety. Patient reports, "Less anxious, thoughts no longer spinning out of control. Slept yesterday after taking Zyprexa until about 2PM. Slept about 4 hours last night." Patient expresses the following psychiatric symptoms none; reports good response from medications for racing thoughts and anxiety. Patient reports taking medications as prescribed, and describes response to medications as good. Patient does not report undesirable side effects from the medications , and agrees to continue current medications. Patient describes getting 4 hours of sleep, and reports feeling more rested today. Patient agrees to outpatient substance abuse treatment. Patient agrees to voluntary hospitalization. Objective: Vital Signs Temp Pulse Resp BP Pulse Ox 36.6 C 81 16 117/75 93 07/16/18 06:00 07/16/18 06:00 07/16/18 06:00 07/16/18 06:00 07/16/18 06:00 NURSING REPORT: Consulted with nursing for update on patients progress in treatment. Nurses report patient is engaged in treatment, is attending groups, slept 4 hours, expresses the following psychiatric symptoms: anxiety, exhibits the following psychiatric symptoms: none, is eating all meals, is agreeable to medications and taking as prescribed with no report of side effects, with no s/ s of EPS/akathisia, and denies SI/HI, denies A/V hallucinations, and denies delusions. TREATMENT TEAM MEETING: Patient met with this CIRCUIT [employer] MAGISTRATE, treatment team, and patients at patients request to review treatment plan and goals for hospitalization. Patient presents with slowed cognitive processing, unable to state day of the week, and difficulty answering simple and appropriate questions regarding his treatment. Patients reports she is concerned for patients safety to discharge and states he is not as his baseline. Patient reports he is concerned for his safety, and agrees to continued hospitalization for safety, crisis stabilization, and medication evaluation. MSE: The patient is a well-nourished male looking stated chronological age. Attire is appropriate dress is casual. Grooming status is appropriate. Ambulation is independent. Gait is normal and coordinated. Posture is normal and relaxed. Eye contact is appropriate. Motor activity is appropriate with purposeful, organized, coordinated movements; with no involuntary movements. Attitude is cooperative. Patient appears attentive and relates well to this interviewer. Language production is spontaneous. Rate is hesitant, latency of response if prolonged, with appropriate volume. Articulation is clear. Patient reports mood as anxious with congruent affect. Patients thought process is linear and logical with no signs of thought disorder. Patient does not report suicidal/homicidal thoughts, ideas, or plans. Patient denies auditory, visual hallucinations. Patient does not report delusions. Patient does not appear to be attending to internal stimuli. Patients attention and concentration are poor. Patient is oriented to person, place. Patients insight is poor. Patients judgment is poor. SUBSTANCE ABUSE BRIEF INTERVENTION: Brief intervention regarding the risks of cannabis abuse is provided to patient with goal to reduce the risk of harm that could result from the continued use of cannabis, with the general aim to investigate the problem, raise awareness of problem, develop a solution with the patient, recommend a specific change or activity, and motivate the patient toward change. Assess substance abuse behavior and give supportive advice about harm reduction, recommend a reduction in hazardous/at-risk consumption patterns, and facilitate referrals for additional specialized treatment with memory care director. Intermediate goal is for the patient to quit and attend outpatient substance abuse treatment. Intervention focus on intermediate goals to allow for more immediate success in the treatment process to keep the patient motivated. Review following with patient: Cannabis use risks: Short- term use: impaired short-term memory, impaired motor coordination, altered judgement, in high doses paranoia and psychosis. Long-term use addiction, diminished life satisfaction and achievement, symptoms of chronic bronchitis, and increased risk of chronic psychosis disorders if predisposition to such disorders. In withdrawal anger, aggression irritability, anxiety and nervousness, decreased appetite or weight loss, restlessness, and sleep difficulties with strange dreams. OUTPATIENT SUBSTANCE ABUSE TREATMENT: Patient referred to outpatient provider and treatment for continued treatment related to substance abuse. - Time Spent With Patient Time Spent With Patient: 30 minutes, met with patient individually and with patient, patient's , and treatment team to review treatment plan and goals for hospitalization. 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
--- NOTE | 2018-07-16 15:49 | ASMTBHFAM ---
Notes Note: Notes: The client participated in clinical treatment rounds. Additionally, his , Umu Aden, joined for a family meeting. He agreed to sign in on a voluntary basis. The client acknowledged that he is still having difficulty processing information. This loan underwriter coordinate follow up care with [facility]. He has multiple appointments both for therapy with his substance abuse counselor, Loiuse Posada, as well as, for psychiatry with Deandra Black MD. This loan underwriter left a voicemail to attempt to reschedule his psychiatry appointment to be sooner due to the hospital discharge. The providers and family agreed to check-in after the weekend to discuss discharge. Date Signed: 07/16/2018 03:48 PM Electronically Signed By:Melissa Miller
[2018-07-16] MEDS: ATORVASTATIN CALCIUM 20 MG TAB PO SCH (21:02)
[2018-07-17] MEDS: OLANZapine DISINTEGR 5 MG TAB PO PRN (01:00)
[2018-07-17] MEDS: MULTIVITAMINS 1 EACH TAB PO SCH (08:53)
[2018-07-17] MEDS: DABIGATRAN ETEXILATE MESYL 150 MG CAP PO SCH ×2 (08:53→20:16)
[2018-07-17] MEDS: OLANZapine DISINTEGR 5 MG TAB PO SCH ×2 (08:53→20:17)
[2018-07-17] MEDS: METOPROLOL TARTRATE 50 MG TAB PO SCH ×2 (08:53→20:16)
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
--- NOTE | 2018-07-17 17:45 | SOAPPROG ---
SOAP Progress Note Assessment/Plan: Assessment: Per Hiram Nunn's note: Generalized Anxiety Disorder, Cannabis-induced anxiety disorder in withdrawal, Cannabis Use Disorder, Severe. R/O Cannabis-induced psychosis/mood disorder. Slight improvement noted (see subjective/objective note). Patient could benefit from continued inpatient hospitalization for crisis stabilization, safety, and medication evaluation. Plan: 1. Psychotropic medications: After reviewing options, risks, and benefits patient agrees to continue current medications. No medication changes at this time as more time is needed to determine ongoing tolerability and efficacy. Plan is to continue to observe patient for response and side effects from medications, and ongoing monitoring and evaluation. Plan: 07/17/18 17:42 1. Patient denies any psychotic sxs. 2. Patient's claims he has been smoking pot "non-stop." She would like him to start cutting down. 3. Patient has f/u with OP providers, Dr. Black and therapist, Sarita, already scheduled. 4. Likely to d/c next week. Subjective: Patient is sitting in front of TV watching basketball game. He is also reading. He denies any AH/VH, denies any SI/HI, denies feeling sad or depressed. He has been going to groups and participating in treatment. Objective: Vital Signs Temp Pulse Resp BP Pulse Ox 36.4 C 93 16 118/77 95 07/17/18 06:00 07/17/18 06:00 07/17/18 06:00 07/17/18 06:00 07/17/18 06:00 MSE: Affect: Euthymic Mood: "OK" TP: Linear TC: Denies SI/HI Perception: Denies any AH/VH Insight/Judgment: Fair - Time Spent With Patient Time Spent With Patient: 15" - Pending Discharge Pending Discharge Within 24 Hours: No Pending Discharge Within 48 Hours: Yes Pending Discharge Date: 07/19/18 (Possible d/c on Thursday) Pending Discharge Time: 11:00 ICD10 Worksheet Patient Problems: Problems Problem Status Onset Cannabis use disorder, severe, dependence Acute 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
[2018-07-17] MEDS: LORazepam 0.5 MG TAB PO PRN (18:15)
[2018-07-17] MEDS: ATORVASTATIN CALCIUM 20 MG TAB PO SCH (20:16)
[2018-07-18] MEDS: MULTIVITAMINS 1 EACH TAB PO SCH (08:09)
[2018-07-18] MEDS: METOPROLOL TARTRATE 50 MG TAB PO SCH ×2 (08:09→21:11)
[2018-07-18] MEDS: DABIGATRAN ETEXILATE MESYL 150 MG CAP PO SCH ×2 (08:09→21:11)
[2018-07-18] MEDS: OLANZapine DISINTEGR 5 MG TAB PO SCH ×2 (08:10→21:12)
--- NOTE | 2018-07-18 15:38 | ASMTCMCOM ---
CM Note CM Note Notes: Pt reports feeling "pretty good". Pt. stated he slept "better" with the blankets his brought in. Pt. stated he is eating well and attending groups. Pt. reports no issues with his current medications. Pt. reports "little bit" of SI, with no plan and giovanna for safety. Pt. rated his SI a 4/10. Pt. denied HI, AVH and paranoia. Pt. presents as alert, calm, hard of hearing, fair eye contact, reading his bible, and cooperative. Staff report pt. sleeping 6 hours and being medication compliant. Date Signed: 07/18/2018 03:38 PM Electronically Signed By:Renetta Sommer
--- NOTE | 2018-07-18 16:04 | SOAPPROG ---
SOAP Progress Note Assessment/Plan: Assessment: Per Hiram Nunn's note: Generalized Anxiety Disorder, Cannabis-induced anxiety disorder in withdrawal, Cannabis Use Disorder, Severe. R/O Cannabis-induced psychosis/mood disorder. Slight improvement noted (see subjective/objective note). Patient could benefit from continued inpatient hospitalization for crisis stabilization, safety, and medication evaluation. Plan: 1. Psychotropic medications: After reviewing options, risks, and benefits patient agrees to continue current medications. No medication changes at this time as more time is needed to determine ongoing tolerability and efficacy. Plan is to continue to observe patient for response and side effects from medications, and ongoing monitoring and evaluation. Plan: 07/17/18 17:42 1. Patient denies any psychotic sxs. 2. Patient's claims he has been smoking pot "non-stop." She would like him to start cutting down. 3. Patient has f/u with OP providers, Dr. Black and therapist, Sarita, already scheduled. 4. Likely to d/c next week. PLAN: 07/18/18 16:00 1. Patient had "good" visit with who brought him blankets and food. 2. is wanting patient to have substance abuse treatment, but patient is not sure he needs it. 3. Voluntary - likely to d/c on Thursday Subjective: Patient is sitting in chair watching football on TV. He ate lunch with his , who brought food and blankets. He says he slept "better" last night. He insists he can only sleep with THC, but staff report he slept 8.5 hrs last night. says she is worried he will start using CBD oil or other cannabis products b/c she says he believes cannabis is the only thing that will calm him down. Staff have tried to remind patient that he has been calm throughout his stay in hospital without cannabis. wants him to see [facility] for substance abuse tx. Objective: Vital Signs Temp Pulse Resp BP Pulse Ox 36.8 C 78 18 124/76 H 93 07/18/18 06:00 07/18/18 06:00 07/18/18 06:00 07/18/18 06:00 07/18/18 06:00 MSE: Affect: Euthymic Mood: "OK" TP: Linear TC: Denies any SI/HI Insight/ Judgment: Poor a/e/b minimizing effect of his THC use - Time Spent With Patient Time Spent With Patient: 15" - Pending Discharge Pending Discharge Within 24 Hours: Yes Pending Discharge Within 48 Hours: No Pending Discharge Date: 07/19/18 (Likely d/c on Thursday) Pending Discharge Time: 11:00 ICD10 Worksheet Patient Problems: Problems Problem Status Onset Cannabis use disorder, severe, dependence Acute 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
[2018-07-18] MEDS: ATORVASTATIN CALCIUM 20 MG TAB PO SCH (21:11)
[2018-07-19 06:34] VITALS: BP 136/69
[2018-07-19] MEDS: OLANZapine DISINTEGR 5 MG TAB PO SCH ×2 (07:52→09:14)
[2018-07-19] MEDS: METOPROLOL TARTRATE 50 MG TAB PO SCH (07:52)
[2018-07-19] MEDS: DABIGATRAN ETEXILATE MESYL 150 MG CAP PO SCH (07:52)
[2018-07-19] MEDS: MULTIVITAMINS 1 EACH TAB PO SCH (07:53)
--- NOTE | 2018-07-19 12:26 | BDS ---
REASON FOR ADMISSION: From the ED note dated 07/13/2018, patient presented to the emergency room accompanied by significant other with worsening severe depression and recently holding a knife to his throat around [place] trying to attempt suicide. Patient reported that he has tried to commit suicide in the past and reported he does not want to live anymore and would attempt again. Patient was admitted involuntarily on an M1 hold due to being a danger to himself. Patient was admitted for safety, crisis stabilization, and medication evaluation. ADMITTING DIAGNOSES: 1. 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 2. Cannabis use disorder, severe. 3. 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 4. Generalized anxiety disorder. 5. 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 ADMISSION PHYSICAL EXAM: Patient was seen for history and physical consultation on 07/13/2018, for medical clearance for inpatient psychiatric hospitalization and treatment. Patient was medically cleared for inpatient psychiatric hospitalization and treatment. For further details, please refer to consultation note dated 07/13/2018. ADMISSION LABS: 1. CBC within normal limits, except white blood cells were elevated at 10.59, eosinophils were low at 0.4, absolute neutrophils were elevated at 7.45, absolute monocytes were elevated at 0.90. 2. BMP within normal limits, except BUN was elevated at 27. 3. Hemoglobin A1c within normal limits at 5.7. 4. Lipid panel within normal limits. 5. Toxicology screen negative for all substances screen and negative for ethyl alcohol. MAJOR PROCEDURES/TESTS: None. HOSPITAL COURSE: The most prominent symptoms and behaviors while the patient was here were patient expressing symptoms of severe anxiety and insomnia. Patient was withdrawn from social interactions. Patient also reported experiencing negative thoughts. Treatment modalities utilized were milieu and group therapy. Trazodone 150 mg p.o. q.h.s. was continued to target insomnia symptoms, was tolerated with no report of side effects, and with good response. Zyprexa Zydis 5 mg p.o. daily and 5 mg p.o. q.h.s. was started to target mood symptoms, was tolerated with no report of side effects, and with good response. Patient has improved considerably with no signs of psychiatric symptoms and no psychiatric symptoms expressed at time of discharge. Patient reports he has improved since admission, states to be in stable condition, feels safe to discharge, and he contracts for safety. Patient's response to treatment was good. There were no adverse or unexpected results of treatment. Patient was safe throughout his stay, active in treatment, engaged in groups, and was appropriate with staff and other patients. Patient met with the treatment team prior to discharge to assess readiness to discharge and review discharge plan. The treatment team consensus is the patient is in stable condition, has a safe discharge plan, and is ready to discharge today. CONDITION AT DISCHARGE: Patient is in stable condition and is no longer a danger to self or others, and is not gravely disabled due to mental illness. Patient is no longer in need of inpatient level of care, and can be safely and effectively treated within the community. The patients level of risk at time of discharge is low. MSE: The patient is casually dressed and with good hygiene , and looks stated age. Patient is sitting, posture is upright, and position is relaxed. Patient appears awake, alert, and responds appropriately and reasonably during interview. Patient is engaged, relates well to interviewer, and emotional facial expression is appropriate to situation and changes appropriately with topic. Patient is cooperative, makes comfortable eye contact , and movements are voluntary, deliberate, coordinated, and smooth and even with no inappropriate movements. Patient makes laryngeal sounds effortlessly and shares conversation appropriately; pace of conversation is appropriate, and stream of talking is fluent; articulation is clear and understandable; word choice is effortless and appropriate for education level; completes sentences, occasionally pausing to think; rate and volume are appropriate for interview and setting. Patient reports mood as euthymic. Patients affect is stable with full variable range, congruent with mood, and appropriate to speech and circumstances. Patient has linear and logical thinking, with no loose associations, tangential thought, thought blocking, concrete thinking, or any other signs of formal thought disorder. Patient denies suicidal and homicidal ideation, and denies hallucinations and delusions. Patient appears to be a reliable historian with sound judgement and good insight into current condition. Patient has no apparent dysfunction in recent or remote memory noted , and no evidence of gross cognitive dysfunction noted at any point during the interview. DISCHARGE DIAGNOSES: 1. 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 2. Cannabis use disorder, severe. 3. 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 4. Generalized anxiety disorder. 5. 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 CURRENT MEDICATIONS: After reviewing options, risks, and benefits with the patient, patient agrees to continue Zyprexa Zydis 5 mg p.o. q.h.s. Patient requests a prescription for this medication at time of discharge. A prescription for 30 days is provided. The prescription is reviewed with the patient at time of discharge to ensure accuracy and patient understanding. Patient will also continue home medications, including the followin. Pradaxa 150 mg p.o. b.i.d. 2. Lipitor 20 mg p.o. q.h.s. .. 3. Trazodone 150 mg p.o. q.h.s. 4. Gabapentin 1200 mg p.o. daily. 5. Lopressor 100 mg p.o. b.i.d. 6. Gabapentin 800 mg p.o. q.h.s. 7. Vitamin D 5000 units p.o. daily. Patient reports he has prescriptions for these medications and does not request prescriptions for these medications at time of discharge. DISPOSITION: Patient left hospital independently and voluntarily with his and plans to return home to [place], [place] with his after discharge. FOLLOWUP: inventory coordinator reports the appropriate outpatient follow-up services have been established and outpatient appointments have been scheduled. The patient received written instructions with times and dates of outpatient follow-up appointments. The following follow-up recommendations were provided to the patient at discharge: Continue psychotropic medications as prescribed and attend appointments as scheduled. Report any side effects to a psychiatric outpatient provider, a primary care provider, or other health day care center director. Address any questions or problems concerning the psychotropic medications with a psychiatric outpatient provider, a primary care provider, or other health day care center director. Contact [facility] or [facility], or go to the nearest emergency room, if you are ever a danger to yourself/others, or unable to care for yourself. As soon as possible, establish a routine medication management treatment with a psychiatric provider, establish routine therapy appointments, and follow-up with a primary care provider. SUBSTANCE ABUSE BRIEF INTERVENTION: Brief intervention regarding the risks of cannabis abuse is provided to patient with goal to reduce the risk of harm that could result from the continued use of cannabis, with the general aim to investigate the problem, raise awareness of problem, develop a solution with the patient, recommend a specific change or activity, and motivate the patient toward change. Assess substance abuse behavior and give supportive advice about harm reduction, recommend a reduction in hazardous/at-risk consumption patterns, and facilitate referrals for additional specialized treatment with daycare manager. Intermediate goal is for the patient to quit and attend outpatient substance abuse treatment. Intervention focus on intermediate goals to allow for more immediate success in the treatment process to keep the patient motivated. Review following with patient: Cannabis use risks: Short- term use: impaired short-term memory, impaired motor coordination, altered judgement, in high doses paranoia and psychosis. Long-term use addiction, diminished life satisfaction and achievement, symptoms of chronic bronchitis, and increased risk of chronic psychosis disorders if predisposition to such disorders. In withdrawal anger, aggression irritability, anxiety and nervousness, decreased appetite or weight loss, restlessness, and sleep difficulties with strange dreams. OUTPATIENT SUBSTANCE ABUSE TREATMENT: Patient referred to outpatient provider and treatment for continued treatment related to substance abuse. LEGAL COURSE: Patient was admitted on an M1 hold for involuntary inpatient psychiatric hospitalization. Patient became voluntary during the course of his hospitalization and the patient discharged today independently and voluntarily. ATTITUDE AT TIME OF DISCHARGE: The patients attitude was positive at time of discharge, and patient reports looking forward to discharging today. The patient reports he feels safe to discharge, is no longer a danger to himself or others, is in stable condition, and contracts for safety. Patient states he will continue medications as prescribed, and establish medication management treatment with an outpatient provider after discharge. Patient reports he understands the information that has been provided to him, and he understands, accepts, and agrees to psychotropic medications. Patient describes internal protective factors as the coping skills he has learned while hospitalized here, and he plans to continue to practice these coping skills after discharge. FAMILY MEETING: This LEGAL RESEARCHER and daycare manager met with patient and patient's at patient's request to assess readiness to discharge and review discharge plan. Patient's reports patient is safe to discharge and has a safe discharge plan. LABORATORY/RADIOLOGY STUDIES: There were no pending labs or studies at time. ADVANCE DIRECTIVES: There were no advance directives on file, and patient was full code during this hospitalization. The following psychotropic medication treatment informed consent and recommendations were provided to the patient at time of discharge. Patient reports he understands, accepts, and agrees to the information that has been provided. PSYCHOTROPIC MEDICATION TREATMENT INFORMED CONSENT and RECOMMENDATIONS: Review nature of condition, diagnosis, and prognosis. Review nature and purpose of psychotropic medication treatment. Review type of psychotropic medications being prescribed. Review risk and benefits of psychotropic medication treatment. Review probable length of time will need to take medications. Review risk and benefits of not undergoing psychotropic medication treatment. Review alternative treatments to psychotropic medications. Review psychotropic medications contraindications, side effects, and importance of reporting any side effects to a psychiatric provider, primary care provider, or other health day care center director. Review importance of asking a psychiatric provider or primary care provider any questions or problems concerning the psychotropic medications. Review safety plan and the importance to contact [facility] or [facility] , or go to the nearest emergency room, if ever a danger to yourself/others, or unable to care for yourself. Recommend upon discharge to establish routine medication management treatment with a psychiatric provider, establish routine therapy appointments, and follow-up with a primary care provider. Verify patient understands, accepts, and agrees to the information that has been provided. /[id number]/MODL MTDD
--- NOTE | 2018-07-19 12:39 | ASMTBHDC ---
Notes Note: Notes: CC met with pt, WOC and HOIST OPERATOR. HOIST OPERATOR stated pt. needs to stop all substance use and allow time for pt's brain to heal. Pt stated he is willing to attend AA/NA meetings, rework the 12 steps, and be open and honest with his providers. WOC was encouraged to take care of herself and offer support groups. WOC stated pt. has an appointment with their family doctor, Dr. Ramírez, on Thursday. WOC stated pt. is not allowed to work for at least 6 weeks after his heart surgery. CC went over follow up appointments with pt and WOC. Pt. stated he will be able to attend all of his follow up appointments. Date Signed: 07/19/2018 12:38 PM Electronically Signed By:Renetta Sommer
== END 2018-07-19 13:10 | disposition home or self-care (01) | DRG 897 ==
LOC: BBEH 15:50
PROVIDERS: ADMIT Psychiatry & Neurology Psychiatry; ATTEND Psychiatry & Neurology Psychiatry
DX: F12.180 Cannabis abuse with cannabis-induced anxiety disorder (principal); F12.188 Cannabis abuse with other cannabis-induced disorder; F12.159 Cannabis abuse with psychotic disorder, unspecified; R45.851 Suicidal ideations; I25.10 Atherosclerotic heart disease of native coronary artery without angina pectoris; I48.91 Unspecified atrial fibrillation; I25.2 Old myocardial infarction; Z95.810 Presence of automatic (implantable) cardiac defibrillator; Z86.73 Personal history of transient ischemic attack (TIA), and cerebral infarction without residual deficits; Z87.891 Personal history of nicotine dependence; Z23 Encounter for immunization
CPT/HCPCS: 80305; G0008; G0009; G0480